=== PATIENT | male | born 1995 | race Caucasian/White ===

== ENCOUNTER 2017-01-12 14:18 | Emergency (ER) | payer OTHER ==
[~2017-01-12] VITALS: Ht 177.8 cm; Wt 59.8 kg
[2017-01-12 14:20] VITALS: Ht 177.8 cm; Wt 59.8 kg
[2017-01-12] MEDS ORDERED: ONDANSETRON 8 MG/54 ML D5W IV STA (14:27)
[2017-01-12] MEDS ORDERED: SODIUM CHLORIDE 0.9% 1000ML 2,000 ML IV STA (14:27)
[2017-01-12 14:49] LABS: BASO % 0.3 %; BASO ABS # 0.03 K/uL (0-0.2); COMPLETE YES; EOS % 0.5 %; HEMATOCRIT 43.6 % (42-52); IG% 0.2 %; LYMPH % 15.1 %; LYMPH ABS # 1.69 K/uL (1.2-3.4); MEAN CELL VOLUME 78.4 fL (80-100); MEAN CORPUSCULAR HEMOGLOBIN 28.1 pg (25-34); MEAN CORPUSCULAR HGB CONC 35.8 g/dl (32-36); MEAN PLATELET VOLUME 9.6 fL (7.4-10.4); MONO % 5.8 %; NEUT % 78.1 %; PLATELET COUNT 282 K/uL (130-400); RED BLOOD COUNT 5.56 M/uL (4.7-6.1); WHITE BLOOD COUNT 11.18 K/uL (4.8-10.8)
[2017-01-12] MEDS ORDERED: INSPMPHMLG (14:51)
[2017-01-12 15:06] LABS: BUN/CREATININE RATIO 17.2 (10-20); CREATININE 1.3 mg/dl (0.60-1.40); POTASSIUM 3.5 mmol/L (3.5-5.1)
[2017-01-12 15:17] LABS: BETA-HYDROXYBUTYRATE 40.26 mg/dL (0.2-2.81)
[2017-01-12 16:38] LABS: URINE APPEARANCE CLEAR (CLEAR); URINE BILIRUBIN NEG (NEG); URINE COLOR YELLOW; URINE NITRITE NEG (NEG); UROBILINOGEN NEG (NEG)
[2017-01-12] MEDS ORDERED: SODIUM CHLORIDE 0.9% 1000ML 1,000 ML IV STA (16:45)
[2017-01-12] MEDS ORDERED: NovoLIN-R INSULIN PER UNIT CHARGE IV STA (16:45)
[2017-01-12 16:46] LABS: MANUAL MICROSCOPIC REQUIRED? NO; REVIEW REQ? NO
[2017-01-12 18:12] LABS: BETA-HYDROXYBUTYRATE 21.9 mg/dL (0.2-2.81); BUN/CREATININE RATIO 21.1 (10-20); CREATININE 0.94 mg/dl (0.60-1.40); POTASSIUM 3.6 mmol/L (3.5-5.1)
--- NOTE | 2017-01-12 18:27 | EMERGENCY ROOM VISIT NOTE ---
History Report prepared by Fritz: Javon Luis Under the Supervision of: Dr. José Luis Wang M.D. First contact with patient: 14:27 Chief Complaint: HYPERGLYCEMIA Stated Complaint: DIABETIC,HIGH BLOOD SUGAR,[place] History of Present Illness The patient is a 21 year old male who presents to the Emergency Room with complaints of constant hyperglycemia starting this morning. The patient states that he was drinking alcohol last night, and he woke up this morning with vomiting and high blood sugar. The patient has a history of diabetes, and he uses an insulin pump, though he states that it might be bent and not functioning properly. The patient's blood sugar was 407 an hour ago, and it was 470 before that. He states that he has had a similar episode after drinking alcohol a few months ago. Pt denies LOC, headache, fevers, chills, diaphoresis, visual changes, neck pain, chest pain, breathing difficulties, abdominal pain, back pain, melena, hematochezia, urinary symptoms, numbness, weakness, lymphadenopathy, rash, or other complaints. Source of History: patient Onset: this morning Position: other (global) Quality: other (hyperglycemia) Timing: constant Associated Symptoms: + vomiting Review of Systems See HPI for pertinent positives and negatives. A total of ten systems were reviewed and were otherwise negative. Past Medical & Surgical Medical Problems: (1) Diabetes Social History Smoking Status: Current Some Day Smoker Alcohol Use: occasionally Marital Status: single Housing Status: lives with roommate Occupation Status: [employer] student Current/Historical Medications Scheduled Insulin Human Lispro (Insulin Humalog Pump ), 1 EA N/A UD Allergies Coded Allergies: No Known Allergies (Unverified , 01/12/17) Physical Exam Vital Signs Date Time Temp Pulse Resp B/P (MAP) Pulse Ox O2 Delivery O2 Flow Rate FiO2 01/12/17 17:00 75 24 103/48 100 Room Air 01/12/17 16:00 77 19 88/42 100 Room Air 01/12/17 15:23 87 20 108/49 100 Room Air 01/12/17 15:06 72 01/12/17 14:20 36.4 96 22 114/38 99 Room Air Physical Exam GENERAL: Awake, alert, moderately ill appearing, actively vomiting, and in moderate distress HEAD: Normocephalic, atraumatic. No edema. EYES: Normal conjunctiva. Sclera non-icteric. OROPHARYNX: Lips, tongue, and mucosa unremarkable. No erythema or exudate. NECK: Supple. No nuchal rigidity. FROM. No adenopathy. RESPIRATORY: CTA bilaterally. No wheezes rales or rhonchi. CARDIAC: Borderline tachycardic rate, normal rhythm. ABDOMEN: Soft, non distended. No tenderness to palpation. No rebound or guarding. MUSCULOSKELETAL: Atraumatic. No edema. NEURO: Normal sensorium. SKIN: No rash or jaundice noted Medical Decision & Procedures Laboratory Results 01/12/17 14:40 Red Blood Count 5.56, Mean Corpuscular Volume 78.4, Mean Corpuscular Hemoglobin 28.1, Mean Corpuscular Hemoglobin Concent 35.8, Mean Platelet Volume 9.6, Neutrophils (%) (Auto) 78.1, Lymphocytes (%) (Auto) 15.1, Monocytes (%) (Auto) 5.8, Eosinophils (%) (Auto) 0.5, Basophils (%) (Auto) 0.3, Neutrophils # (Auto) 8.73, Lymphocytes # (Auto) 1.69, Monocytes # (Auto) 0.65, Eosinophils # (Auto) 0.06, Basophils # (Auto) 0.03 01/12/17 17:19 Test 01/12/17 14:40 01/12/17 16:15 01/12/17 16:18 01/12/17 17:19 White Blood Count 11.18 K/uL (4.8-10.8) Red Blood Count 5.56 M/uL (4.7-6.1) Hemoglobin 15.6 g/dL (14.0-18.0) Hematocrit 43.6 % (42-52) Mean Corpuscular Volume 78.4 fL (80-100) Mean Corpuscular Hemoglobin 28.1 pg (25-34) Mean Corpuscular Hemoglobin Concent 35.8 g/dl (32-36) Platelet Count 282 K/uL (130-400) Mean Platelet Volume 9.6 fL (7.4-10.4) Neutrophils (%) (Auto) 78.1 % Lymphocytes (%) (Auto) 15.1 % Monocytes (%) (Auto) 5.8 % Eosinophils (%) (Auto) 0.5 % Basophils (%) (Auto) 0.3 % Neutrophils # (Auto) 8.73 K/uL (1.4-6.5) Lymphocytes # (Auto) 1.69 K/uL (1.2-3.4) Monocytes # (Auto) 0.65 K/uL (0.11-0.59) Eosinophils # (Auto) 0.06 K/uL (0-0.5) Basophils # (Auto) 0.03 K/uL (0-0.2) RDW Standard Deviation 37.5 fL (36.4-46.3) RDW Coefficient of Variation 13.2 % (11.5-14.5) Immature Granulocyte % (Auto) 0.2 % Immature Granulocyte # (Auto) 0.02 K/uL (0.00-0.02) Total Bilirubin 1.2 mg/dl (0.2-1) Direct Bilirubin 0.2 mg/dl (0-0.2) Aspartate Amino Transf (AST/SGOT) 24 U/L (15-37) Alanine Aminotransferase (ALT/SGPT) 31 U/L (12-78) Alkaline Phosphatase 122 U/L (45-117) Total Protein 8.6 gm/dl (6.4-8.2) Albumin 4.9 gm/dl (3.4-5.0) Lipase 52 U/L (73-393) Urine Color YELLOW Urine Appearance CLEAR (CLEAR) Urine pH 5.0 (4.5-7.5) Urine Specific [place] 1.040 (1.000-1.030) Urine Protein NEG (NEG) Urine Glucose (UA) 3+ (NEG) Urine Ketones 4+ (NEG) Urine Occult Blood NEG (NEG) Urine Nitrite NEG (NEG) Urine Bilirubin NEG (NEG) Urine Urobilinogen NEG (NEG) Urine Leukocyte Esterase NEG (NEG) Bedside Glucose 197 mg/dl (70-99) Anion Gap 9.0 mmol/L (3-11) Est Creatinine Clear Calc Drug Dose 106.9 ml/min Estimated GFR () 135.7 Estimated GFR (Non- 117.1 BUN/Creatinine Ratio 21.1 (10-20) Beta-Hydroxybutyric Acid 21.90 mg/dL (0.2-2.81) Laboratory results reviewed by me Medications Administered Medications (Trade) Dose Ordered Sig/Kelsey Route Start Time Stop Time Status Last Admin Dose Admin Sodium Chloride 2,000 ml @ 999 mls/hr Q2H1M STAT IV 01/12/17 14:27 01/12/17 16:27 DC 01/12/17 14:45 999 MLS/HR Ondansetron HCl (Zofran 8mg Iv) 8 mg NOW STAT IV 01/12/17 14:27 01/12/17 14:28 DC 01/12/17 14:44 8 MG Insulin Human Regular (novoLIN-R U-100 PER UNIT) 6 units NOW STAT IV 01/12/17 16:45 01/12/17 16:48 DC 01/12/17 16:56 6 UNITS Sodium Chloride 1,000 ml @ 999 mls/hr Q1H1M STAT IV 01/12/17 16:45 01/12/17 17:45 DC 01/12/17 16:58 999 MLS/HR ED Course 1427: The patient was evaluated in room C3. A complete history and physical exam was performed. I ordered Zofran 8mg IV, Sodium Chloride 2000 ml @ 999 mls/ hr IV 1642: I reevaluated the patient, and he was doing much better, and he is getting insulin and waiting for his lab results 1645: Sodium Chloride 1000 ml @ 999 mls/hr IV, Insulin Human Regular 6 units IV 1815: Patient was reassessed. He is doing much better. He is asymptomatic. He is hungry. He was given food. He is repeat lab testing reveals resolution of his mild DKA. The patient feels very comfortable with close outpatient follow-up and conservative management. Return instructions were outlined. Medical Decision Triage Nursing notes reviewed. The patient's presentation and history were concerning for vomiting, alcohol intake and diabetes. Etiologies such as gastroenteritis, food borne illness, alcohol induced, DKA, infections, obstruction, pancreatitis, appendicitis, diverticulitis, inflammatory bowel disease, GI bleed, biliary pathology, toxicologic as well as others were entertained. The patient was evaluated. He was actively vomiting. He looked uncomfortable. He notices happened to him before. He was hydrated and did much better at that time. The IV was established. Blood was obtained. The patient was hydrated and given Zofran. He felt significantly better with this. He was given additional IV fluid. He had a slight leukocytosis which I believe is a stress response. His chemistry panel showed a minimal decrease in his bicarbonate and he was hyperglycemic. He had elevation of his beta hydroxybutyrate. This would be consistent with a early or mild DKA. She patient had already. Himself with insulin through his pump and his sugar was falling. He was given a small amount of IV insulin. He was given additional hydration. The patient was tolerating oral fluids without difficulty. He had repeat chemistry testing done. His mild DKA resolved. He was asymptomatic. He was given food and did well with this. Conservative management was discussed. The patient will refrain from additional alcohol use which I believe is the direct trigger to this episode. He will follow-up closely as an outpatient. If he worsens in any way he will go back to the Emergency Room for reevaluation. I gave my usual and customary discussion regarding this issue. By the evaluation outlined above other emergent etiologies such as those listed in the differential, as well as others, were deemed relatively unlikely. The patient was educated about the findings as listed above. All questions were answered and the patient was pleased with the treatment. Return instructions were outlined and the patient was discharged in stable condition. The patient was referred to [facility] for follow-up for a recheck of the current condition. Impression Primary Impression: Vomiting Additional Impressions: DKA (diabetic ketoacidoses) Hangover Scribe Attestation The scribe's documentation has been prepared under my direction and personally reviewed by me in its entirety. I confirm that the note above accurately reflects all work, treatment, procedures, and medical decision making performed by me. Departure Information Dispostion Home / Self-Care Referrals No Doctor, Assigned (PCP) Patient Instructions My [facility] Additional Instructions Continue current insulin regimen. Rest and drink plenty of fluids. Stay well hydrated. Eat a healthy diet. Avoid any alcohol. Return to the ER for worsening abdominal pain, vomiting, fevers, bloody stools, or as needed. Follow-up with [facility] on Sunday for recheck. Problem Qualifiers Additional Impressions:
[2017-01-12 19:23] VITALS: TEMP 36.4
[2017-01-12 19:50] VITALS: BP 112/37; PULSE 84; O2SAT 99
== END 2017-01-12 19:51 | disposition home or self-care (01) ==
LOC: C.EDB 14:20 → C.EDC 19:51
DX: R11.10 Vomiting, unspecified (principal); E11.10 Type 2 diabetes mellitus with ketoacidosis without coma; F10.129 Alcohol abuse with intoxication, unspecified; E11.65 Type 2 diabetes mellitus with hyperglycemia; Z96.41 Presence of insulin pump (external) (internal); F17.200 Nicotine dependence, unspecified, uncomplicated